=== PATIENT | male | born 1940 | race Caucasian/White ===

== ENCOUNTER → 2017-01-16 | Outpatient (CLI) | payer MEDICARE, BC, MEDICAID ==
--- NOTE | 2017-01-16 14:40 | REP ---
Clinical: Pain and difficulty with ambulation. Technique: AP, lateral, bilateral oblique and sunrise views of the right knee. Findings: Advanced tricompartmental osteoarthritic degenerative changes are appreciated including presumed loose bodies in the joint space, chondrocalcinosis, severe joint space obliteration and marginal osteophytes. Vascular calcifications are identified. No obvious acute fracture dislocation. Overlying swelling. Impression: Advanced tricompartmental osteoarthritic degenerative changes as described above. No obvious acute fracture or dislocation. Signed by Anders Damon MD 01/16/2017 02:32 P
--- NOTE | 2017-01-16 14:43 | REP ---
Clinical: Pain and difficulty with ambulation. Technique: AP and lateral views of the right hip. Comparison: 08/11/1970. Findings: Orthopedic hardware for prior hip fracture is in stable appropriate position. Joint space narrowing along with subtle spurring along the acetabular roof is again noted and consistent with mild to moderate degenerative change. Vascular calcifications are identified. No acute fracture dislocation. Impression: Relatively similar/stable appearance when compared to 2006. No acute fracture dislocation. Signed by Anders Damon MD 01/16/2017 02:35 P
--- NOTE | 2017-01-16 14:47 | REP ---
Clinical: Pain and difficulty on ambulation. Technique: AP and lateral views of the tibia / fibula. Findings: Advanced degenerative changes at the knee joint. No acute fracture dislocation. Surgical clips in the subcutaneous tissues consistent with prior vascular surgery. Impression: No acute fracture dislocation. Signed by Anders Damon MD 01/16/2017 02:40 P
== END ==
LOC: M SMT 13:16
PROVIDERS: ATTEND Nurse Practitioner Family
DX: R26.2 Difficulty in walking, not elsewhere classified (principal); M17.11 Unilateral primary osteoarthritis, right knee

== ENCOUNTER → 2018-07-12 | Outpatient (REF) | payer MEDICARE, MEDICAID ==
[2018-07-12 17:14] LABS: APPEARANCE, URINE CLEAR (CLEAR); BACTERIA, URINE AUTO NEGATIVE (NEGATIVE); BILIRUBIN, URINE AUTO NEGATIVE (NEGATIVE); BLOOD, URINE BLOOD NEGATIVE (NEGATIVE); CALCIUM OXALATE CRYSTALS MODERATE; COLOR, URINE YELLOW (YELLOW); GLUCOSE, URINE (UA) AUTO NEGATIVE (NEGATIVE); KETONE, URINE AUTO NEGATIVE (NEGATIVE); LEUKOCYTE ESTERASE, URINE AUTO NEGATIVE (NEGATIVE); MUCUS, URINE SMALL (NEGATIVE); NITRITE, URINE AUTO NEGATIVE (NEGATIVE); PROTEIN, URINE AUTO NEGATIVE (NEGATIVE); RBC, URINE AUTO 3 /HPF (0-3); SQUAMOUS EPITHELIAL CELL UR AU 0 /HPF (0-6); UROBILINOGEN, URINE AUTO 0.2 mg/dL (0.0-2.0); WBC, URINE AUTO 1 /HPF (0-3)
== END ==
LOC: M LAB REF 10:56
DX: R32 Unspecified urinary incontinence (principal)
CPT/HCPCS: 81001

== ENCOUNTER 2019-06-16 17:18 | Observation (INO) | payer MEDICARE, MEDICAID ==
[~2019-06-16] VITALS: Ht 167.6 cm; Wt 89.7 kg
[2019-06-16] MEDS ORDERED: LASI40TA9 PO (18:19)
[2019-06-16] MEDS ORDERED: NON-325T5 PO (18:19)
[2019-06-16] MEDS ORDERED: POTA10TA16 PO (18:19)
[2019-06-16] MEDS ORDERED: METO25TA4 PO (18:19)
[2019-06-16] MEDS ORDERED: SIMV40TA2 PO (18:19)
[2019-06-16] MEDS ORDERED: MULTCAP PO (18:19)
[2019-06-16] MEDS ORDERED: BAYE325T16 PO (18:19)
[2019-06-16] MEDS ORDERED: NYAM10003 TOP (18:19)
[2019-06-16 19:04] LABS: ACETAMINOPHEN LEVEL < 2.0 UG/ML (10.0-30.0); ALBUMIN 3.6 GM/DL (3.2-5.2); ALT/SGPT 56 U/L (12-78); BILIRUBIN,DIRECT 0.2 MG/DL (0.0-0.2); BILIRUBIN,TOTAL 0.5 MG/DL (0.2-1.0); BLOOD UREA NITROGEN 15 MG/DL (7-18); CALCIUM LEVEL 8.6 MG/DL (8.8-10.2); CARBON DIOXIDE LEVEL 29 MEQ/L (21-32); CHLORIDE LEVEL 103 MEQ/L (98-107); CPK CREATINE PHOSPHOKINASE 76 U/L (39-308); CREATININE FOR GFR 1.17 MG/DL (0.70-1.30); ETHYL ALCOHOL (ETHANOL) < 0.003 % (0.000-0.010); GLOMERULAR FILTRATION RATE > 60.0 (>42); GLUCOSE, FASTING 152 MG/DL (70-100); POTASSIUM SERUM 4.6 MEQ/L (3.5-5.1); SALICYLATE LEVEL < 1.7 MG/DL (5.0-30.0); SODIUM LEVEL 139 MEQ/L (136-145); THYROID STIMULATING HORMONE 0.631 uIU/ML (0.358-3.740); TOTAL PROTEIN 7.5 GM/DL (6.4-8.2)
[2019-06-16 19:33] LABS: BASO # 0.1 10^3/uL (0.0-0.2); BASO % 0.9 % (0.0-1.0); HEMOGLOBIN 15.8 g/dl (13.5-17.5); LYMPH # 0.8 10^3/uL (1.5-5.0); LYMPH % 10.9 % (24.0-44.0); MEAN CORPUSCULAR HEMOGLOBIN 32.4 pg (27.0-33.0); MEAN CORPUSCULAR HGB CONC 32.9 g/dl (32.0-36.5); MEAN CORPUSCULAR VOLUME 98.6 fl (80.0-96.0); MONO # 0.2 10^3/uL (0.0-0.8); MONO % 2.4 % (0.0-5.0); NEUTROPHILS % 85.5 % (36.0-66.0); PLATELET COUNT, AUTOMATED 194 10^3/uL (150-450); RED BLOOD COUNT 4.87 10^6/uL (4.30-6.10)
[2019-06-16] MEDS ORDERED: ONDANSETRON 4MG/2ML VIAL (J2405) IV ONE (21:15)
--- NOTE | 2019-06-16 21:34 | ECGEPIP ---
[facility] - ED Test Date: 2019-06-16 Pat Name: JOCELYN LYONS Department: Room: - Gender: Male Minute Clerk: JChanetll : 1940 Requested By: KACIE Ramesh Order Number: [id number] Reading MD: Gagan Siddiqui Measurements Intervals [place] Rate: 70 P: 42 OR: 168 QRS: -8 QRSD: 85 T: 87 QT: 416 QTc: 450 Interpretive Statements SINUS RHYTHM NONSPECIFIC T-WAVE ABNORMALITY NSTTW ABNORMALITIES BASELINE ARTIFACT AFFECTS INTERPRETATION NO PRIORS FOR COMPARISON Electronically Signed on 06-16-2019 21:33:37 EDT by Gagan Siddiqui
--- NOTE | 2019-06-16 21:53 | REPVR ---
PROCEDURE INFORMATION: Exam: CT Head Without Contrast Exam date and time: 06/16/2019 9:29 PM Clinical history: 78 years old, male; Altered mental status/memory loss TECHNIQUE: Imaging protocol: Computed tomography of the head without contrast. Radiation optimization: All CT scans at this facility use at least one of these dose optimization techniques: automated exposure control; mA and/or kV adjustment per patient size (includes targeted exams where dose is matched to clinical indication); or iterative reconstruction. COMPARISON: No relevant prior studies available. FINDINGS: Brain: Chronic encephalomalacic changes in the bilateral anterior frontal lobes, and bilateral parietal lobes. Nonspecific hypodensities of the periventricular and deep subcortical white matter, most likely secondary to chronic small vessel ischemic change. No intracranial hemorrhage or extra-axial fluid collection. No evidence of mass effect or midline shift. Lora-white matter differentiation is normal. Ventricles: Prominence of the ventricles and sulci, most likely attributed to parenchymal volume loss. Bones/joints: Chronic bilateral agustín hole defects. No acute fracture. Sinuses: Unremarkable as visualized. Mastoid air cells: Unremarkable. Soft tissues: Unremarkable. IMPRESSION: 1. No acute intracranial pathology. 2. Other chronic findings, as above. Electronically signed by: Shon Kulkarni On 06/16/2019 21:53:09 PM
[2019-06-16] MEDS ORDERED: ACETAMINOPHEN TAB 650MG DOSE (2X325MG) PO PRN (23:00)
[2019-06-16] MEDS ORDERED: HALOPERIDOL 5 MG/ML VIAL (J1630) IV PRN (23:00)
--- NOTE | 2019-06-16 23:24 | HPEPDOC ---
General Date of Admission 06/16/19 Date of Service: Jun 16, 2019 Primary Care Physician: Maya Sanchez Chief Complaint The patient is a 78-year-old male admitted with a reason for visit of Accidental Overdose. Source: RN/MD, EMS notes reviewed, shelter records, Old records Exam Limitations: Clinical conditions, Mild cognitive slowing Timing/Duration: Unsure Severity: Other (, not applicable) Associated Symptoms: Other (confusion) History of Present Illness 78 years old assisted living resident with past medical history of lipidemia. Essential primary hypertension, old VA, ASHD, amnesia was brought to ED as he received 200 mg, alert, and 77.5 mg of Percocet by mistake and as as per patient, he felt like he drank a time. Patient had extensive workup done ED essentially came out negative and patient was about to be discharged home. He was found to be confused, pulling out his EKG leads and continuous pulse ox and lead. Hence, we were called in to admit him for observation overnight. Patient has a loss of attention, but is cooperative and follows commands and offers no new complaints Home Medications Scheduled Aspirin (Aspirin) 325 Mg Tablet, 325 MG PO DAILY, (Reported) Furosemide (Lasix) 40 Mg Tablet, 40 MG PO DAILY, (Reported) Metoprolol Tartrate (Metoprolol Tartrate) 25 Mg Tablet, 12.5 MG PO BID, (Reported) Multivitamin (Multivitamins) 1 Each Capsule, 1 CAP PO DAILY, (Reported) Potassium Chloride (Potassium Chloride) 10 Meq Tab.er.prt, 10 MEQ PO DAILY, (Reported) Simvastatin (Simvastatin) 40 Mg Tablet, 40 MG PO QHS, (Reported) Scheduled PRN Acetaminophen (Acetaminophen) 325 Mg Tablet, 650 MG PO Q4H PRN for PAIN / FEVER, (Reported) Nystatin (Nyamyc) 15 Gm Powder, 1 APPLIC TOP BID PRN for RASH, (Reported) Allergies Coded Allergies: No Known Allergies (Unverified , 06/16/19) Past Medical History Medical History Hyperlipidemia, essential primary hypertension, old VA, ASHD, GERD, amnesia, COPD Surgical History History of colonoscopy, biopsy of the GE junction. ORIF of right hip Family History Significant Family History: No pertinent family hx Social History * Smoker: current smoker Alcohol: Denies Drugs: denies A-FIB/CHADSVASC A-FIB History Current/History of A-Fib/PAF?: No Review of Systems Constitutional: Denies: Chills, Fever, Malaise, Night Sweats, Weakness, Fatigue, Weight Loss, Lethargy, Other Eyes: Denies: Pain, Vision change, Conjunctivae inflammation, Eyelid inflammation, Redness, Other ENT: Denies: Head Aches, Ear Pain, Dysphagia, Sinus Congestion, Post Nasal Drip, Sore Throat, Epistaxis, Other Symptoms Skin: Denies: Rash, Lesions, Jaundice, Bruising, Itching, Dry, Breakdown, Nail Changes, Other Pulmonary: Denies: Dyspnea, Cough, Pleuritic Chest Pain, Other Symptoms Cardiovascular: Denies: Chest Pain, Palpitations, Orthopnea, Paroxysmal Noc. Dyspnea, Edema, Lt Headedness, Other Symptoms Gastrointestinal: Denies: Nausea, Vomiting, Abdominal Pain, Diarrhea, Constipation, Melena, Hematochezia, Other Symptoms Genitourinary: Denies: Dysuria, Frequency, Incontinence, Hematuria, Retention, Other Symptoms Hematologic: Denies: Bruising, Bleeding Excessively, Petecchia, Purpura, Enlarged Lymph Nodes, Other Hematologic Endocrine: Denies: Polydipsia, Polyphagia, Polyuria, Heat Intolerance, Cold Intolerance, Other Endocrine Sx Musculoskeletal: Denies: Neck Pain, Back Pain, Shoulder Pain, Arm Pain, Hand Pain, Leg Pain, Foot Pain, Joint Pain, Muscle Pain, Spasms, Other Symptoms Neurological: Denies: Weakness, Numbness, Incoordination, Change in speech, Confusion, Seizures, Other Symptoms Psych: Denies: Mood Normal, Anxiety, Depression, Memory Issues, Thoughts of Self Harm, Anger, Thoughts of Harming Other, Other Psych Physical Examination General Exam: Positive: Alert, Cooperative, Other (confused with light of lack of attention, but follows commands) Eye Exam: Positive: PERRLA, Conjunctiva & lids normal ENT Exam: Positive: Atraumatic, Mucous membr. moist/pink Neck Exam: Positive: Supple Chest Exam: Positive: Clear to auscultation, Normal air movement Heart Exam: Positive: Rate Normal, Normal S1, Normal S2 Abdomen Exam: Positive: Normal bowel sounds, Soft Extremity Exam: Positive: Normal pulses Skin Exam: Positive: Nl turgor and temperature Neuro Exam: Positive: Strength at 5/5 X4 ext, Sensation Intact Psych Exam: Positive: Other (. Patient is confused) Vital Signs Vital Signs Date Time Temp Pulse Resp B/P (MAP) Pulse Ox O2 Delivery O2 Flow Rate FiO2 06/16/19 22:16 80 16 142/77 (98) 92 06/16/19 19:55 97.8 Room Air Laboratory Data Labs 24H Laboratory Tests 2 06/16/19 18:04: Immature Granulocyte % (Auto) 0.3, Neutrophils (%) (Auto) 85.5H, Lymphocytes (%) (Auto) 10.9L, Monocytes (%) (Auto) 2.4, Eosinophils (%) (Auto) 0.0, Basophils (%) (Auto) 0.9, Neutrophils # (Auto) 6.0, Lymphocytes # (Auto) 0.8L, Monocytes # (Auto) 0.2, Eosinophils # (Auto) 0.0, Basophils # (Auto) 0.1, Nucleated Red Blood Cells % (auto) 0.0, Anion Gap 7L, Glomerular Filtration Rate > 60.0, Calcium Level 8.6L, Total Bilirubin 0.5, Direct Bilirubin 0.2, Aspartate Amino Transf (AST/SGOT) 42H, Alanine Aminotransferase (ALT/SGPT) 56, Alkaline Phosphatase 68, Total Creatine Kinase 76, Total Protein 7.5, Albumin 3.6, Albumin/Globulin Ratio 0.92L, Thyroid Stimulating Hormone (TSH) 0.631, Salicylates Level < 1.7L, Acetaminophen Level < 2.0L, Ethyl Alcohol Level < 0.003 CBC/BMP Laboratory Tests 06/16/19 18:04 Problems (1) Ingestion of nontoxic substance Status: Acute Problem Text: 78 years old white male with past medical history of multiple medical problems including GERD, hypertension, COPD, hyperlipidemia, ASHD, accidentally was given some other patient's medications and he He was drunk. Elmer had extensive workup done in ED which was all essentially within normal limits and he was ready to be discharged back to assisted-living facility, but was found to be confused with pulling his EKG leads and a continuous pulse ox later and tried to get out of bed, hence being admitted to PCU under observation overnight. Confusion is most likely secondary to delirium secondary to new environment and possibly baseline dementia Admitted to PCU with the telemetry monitoring One-to-one observation to prevent falls Neuro check every 4 hours for 24 hours Haldol 1 mg IV/IM every 6 hours when necessary for agitation CBC, CMP, magnesium in a.m. Continue all home meds Possible transfer back to assisted-living facility in a.m. Diet 2 g sodium Activity as tolerated DVT prophylaxis with heparin (2) Confusion Status: Acute Problem Text: Most likely secondary to delirium secondary to new environment with possible baseline dementia Close observation Haldol when necessary One-to-one watch Neuro check every 6 hours for 24-hour (3) Smoking addiction Status: Chronic Problem Text: Nicotine 14 mg patch daily Smoking cessation counseling done (4) HTN (hypertension) Problem Text: Under control Continue home meds Plan / VTE VTE Prophylaxis Ordered?: Yes BERNY PRESTON MD Jun 16, 2019 23:24
[2019-06-17 01:30] VITALS: BP 143/72
[2019-06-17 04:00] VITALS: BP 107/66
[2019-06-17 08:00] VITALS: BP 145/73
--- NOTE | 2019-06-17 08:06 | REP ---
Chest x-ray: Two views. History: Altered mental status. Comparison chest x-ray: September 21, 2008. Findings: The patient is status post prior median sternotomy in the interval since the 2009 chest x-ray. Heart is not enlarged. There is a benign pleural thickening on the right. No pleural effusion is seen. No pulmonary edema is noted. No infiltrate seen. Vascular calcifications noted. Impression: Prior sternotomy. Otherwise no acute disease. Electronically Signed by Naseem Limon MD 06/17/2019 07:57 A
[2019-06-17 08:39] VITALS: BP 145/73
[2019-06-17] MEDS ORDERED: POTASSIUM CHLORIDE 10 MEQ SR TABLET PO SCH (09:00)
[2019-06-17] MEDS ORDERED: HEPARIN SOD (PORCINE) 5000 UNITS/ML VIAL SC SCH (09:00)
[2019-06-17] MEDS ORDERED: ASPIRIN 325 MG TAB PO SCH (09:00)
[2019-06-17] MEDS ORDERED: FUROSEMIDE 40 MG TAB PO SCH (09:00)
[2019-06-17] MEDS ORDERED: METOPROLOL TART 12.5 MG PER 1/2 TAB PO SCH (09:00)
[2019-06-17] MEDS ORDERED: NYSTATIN 100,000 UNITS/GM TOPICAL PWD 15 GM TOP PRN (09:00)
[2019-06-17 10:17] LABS: HEMOGLOBIN 14.8 g/dl (13.5-17.5); MEAN CORPUSCULAR HEMOGLOBIN 33.2 pg (27.0-33.0); MEAN CORPUSCULAR HGB CONC 34.4 g/dl (32.0-36.5); MEAN CORPUSCULAR VOLUME 96.4 fl (80.0-96.0); PLATELET COUNT, AUTOMATED 177 10^3/uL (150-450); RED BLOOD COUNT 4.46 10^6/uL (4.30-6.10); WHITE BLOOD COUNT 8.3 10^3/uL (4.0-10.0)
[2019-06-17 11:02] LABS: ALBUMIN 3.3 GM/DL (3.2-5.2); ALT/SGPT 48 U/L (12-78); BILIRUBIN,TOTAL 0.6 MG/DL (0.2-1.0); BLOOD UREA NITROGEN 17 MG/DL (7-18); CALCIUM LEVEL 8.3 MG/DL (8.8-10.2); CARBON DIOXIDE LEVEL 30 MEQ/L (21-32); CHLORIDE LEVEL 104 MEQ/L (98-107); CREATININE FOR GFR 1.04 MG/DL (0.70-1.30); GLOMERULAR FILTRATION RATE > 60.0 (>42); GLUCOSE, FASTING 185 MG/DL (70-100); POTASSIUM SERUM 3.4 MEQ/L (3.5-5.1); SODIUM LEVEL 140 MEQ/L (136-145); TOTAL PROTEIN 6.9 GM/DL (6.4-8.2)
--- NOTE | 2019-06-17 13:06 | DSES ---
DATE OF ADMISSION: 06/16/2019 DATE OF DISCHARGE: 06/17/2019 The patient is discharged to [facility]. PRIMARY DISCHARGE DIAGNOSES: 1. Acute delirium due to ingestion of nontoxic substance. 2. Nicotine abuse. 3. Hypertension. DISCHARGE MEDICATIONS: - acetaminophen 650 mg every 4 hours as needed for pain - aspirin 325 mg daily - Lasix 40 mg daily - metoprolol 12.5 mg twice a day - multivitamin one tablet daily - nystatin as needed topically twice a day - potassium 10 mEq daily - simvastatin 40 mg at night HOSPITAL COURSE: This is a 78-year-old male who lives at [facility] with a history of chronic dementia, dyslipidemia, hypertension, coronary artery disease, myocardial infarction, had taken Percocet by mistake per the patient and felt like he was intoxicated. Extensive workup in the emergency room, including CBC, CMP, TSH, urine toxicology screen were all negative. Glucose was 153. Imaging study included CT of the head, which showed no acute intracranial pathology. Due to belligerence, the patient required a sitter overnight, as he was pulling on telemetry. Telemetry was unremarkable and with sinus rhythm, ventricle rate of 69 to 90. The patient is wheelchair bound at baseline. Much more oriented today. Able to state his name, where he is in the hospital, and able to say that he lives at the [facility]. However, he is disoriented to date. He knows that it is fall, does not know the month or year, which is baseline. LABORATORIES ON DISCHARGE: White count 7, hemoglobin 15, hematocrit 48, platelet count 194. Sodium 139, potassium 4.6, chloride 103, bicarbonate 29, BUN 15, creatinine 1.17, glucose 152, calcium 8.6, total bilirubin 0.5, direct bilirubin 0.2, AST 42, ALT 56, alkaline phosphatase 68, total CK 76, total protein 7.5, albumin 3.6, TSH is 0.63. Toxicology screen: Ethyl alcohol less than 0.003, acetaminophen less than 2, salicylate less than 1.7, glucose 153. CT of the head showed no acute intracranial pathology on 06/16/2019. Time spent on discharge: 30 minutes.
[2019-06-17] MEDS ORDERED: SIMVASTATIN 40 MG TAB PO SCH (21:00)
== END 2019-06-17 12:56 ==
LOC: EDBD 17:18 → M ED 17:18 → M ED INP 17:19 → M PCU 06-17 01:09
PROVIDERS: ADMIT Internal Medicine; ATTEND Internal Medicine
DX: T40.2X1A Poisoning by other opioids, accidental (unintentional), initial encounter (principal); F05 Delirium due to known physiological condition; I10 Essential (primary) hypertension; I25.10 Atherosclerotic heart disease of native coronary artery without angina pectoris; I25.2 Old myocardial infarction; E78.49 Other hyperlipidemia; J44.9 Chronic obstructive pulmonary disease, unspecified; Z79.82 Long term (current) use of aspirin; Z79.899 Other long term (current) drug therapy; K21.9 Gastro-esophageal reflux disease without esophagitis; F17.218 Nicotine dependence, cigarettes, with other nicotine-induced disorders
CPT/HCPCS: 36415; 70450; 71046; 80048; 80053; 80076; 82550; 83735; 84443; 85025; 85027; 93005; 93041; 94760; 96372; 99285; G0378; G0480

== ENCOUNTER → 2019-12-18 | Outpatient (REF) | payer MEDICARE, MEDICAID ==
[~2019-12-18] MED LIST: BAYE325T16 PO; LASI40TA9 PO; METO25TA4 PO; MULTCAP PO; NON-325T5 PO; NYAM10003 TOP; POTA10TA16 PO; SIMV40TA20 PO
[2019-12-18 17:23] LABS: HEMOGLOBIN A1c 7.2 %
[2019-12-18 17:27] LABS: ALBUMIN 3.9 GM/DL (3.2-5.2); ALT/SGPT 71 U/L (12-78); BILIRUBIN,TOTAL 0.5 MG/DL (0.2-1.0); BLOOD UREA NITROGEN 14 MG/DL (7-18); CALCIUM LEVEL 8.7 MG/DL (8.8-10.2); CARBON DIOXIDE LEVEL 28 MEQ/L (21-32); CHLORIDE LEVEL 104 MEQ/L (98-107); CHOLESTEROL LEVEL 146 MG/DL (<200); CHOLESTEROL RISK RATIO 4.171 (<5); CREATININE FOR GFR 0.94 MG/DL (0.70-1.30); GLOMERULAR FILTRATION RATE > 60.0 (>35); GLUCOSE, FASTING 114 MG/DL (70-100); HDL CHOLESTEROL 35 MG/DL (>40); LDL CHOLESTEROL 67 MG/DL (<100); NON-HDL-C 111 MG/DL; SODIUM LEVEL 139 MEQ/L (136-145); TOTAL PROTEIN 7.8 GM/DL (6.4-8.2); TRIGLYCERIDES LEVEL 219 MG/DL (<150)
== END ==
LOC: M SFHCPLAZ 15:23
PROVIDERS: ATTEND Internal Medicine
DX: I25.10 Atherosclerotic heart disease of native coronary artery without angina pectoris (principal); E78.2 Mixed hyperlipidemia; R73.9 Hyperglycemia, unspecified
CPT/HCPCS: 36415; 80053; 80061; 83036; G0463

== ENCOUNTER → 2020-06-21 | Outpatient (REF) | payer MEDICARE, MEDICAID ==
[2020-06-21 11:47] LABS: BASO # 0.1 10^3/uL (0.0-0.2); BASO % 1.4 % (0.0-1.0); EOS # 0.3 10^3/uL (0.0-0.5); EOS % 4.5 % (0.0-3.0); HEMATOCRIT 47.1 % (42.0-52.0); HEMOGLOBIN 15.6 g/dl (13.5-17.5); LYMPH # 1.9 10^3/uL (1.5-5.0); LYMPH % 30.1 % (24.0-44.0); MEAN CORPUSCULAR HEMOGLOBIN 31.1 pg (27.0-33.0); MEAN CORPUSCULAR HGB CONC 33.1 g/dl (32.0-36.5); MONO # 0.4 10^3/uL (0.0-0.8); MONO % 5.7 % (0.0-5.0); NEUTROPHILS # 3.7 10^3/uL (1.5-8.5); NEUTROPHILS % 58.1 % (36.0-66.0); PLATELET COUNT, AUTOMATED 187 10^3/uL (150-450); RED BLOOD COUNT 5.01 10^6/uL (4.30-6.10); WHITE BLOOD COUNT 6.3 10^3/uL (4.0-10.0)
[2020-06-21 13:01] LABS: HEMOGLOBIN A1c 6.4 %
[2020-06-21 13:31] LABS: ALBUMIN 3.6 GM/DL (3.2-5.2); ALT/SGPT 41 U/L (12-78); BILIRUBIN,TOTAL 0.8 MG/DL (0.2-1.0); BLOOD UREA NITROGEN 14 MG/DL (7-18); CALCIUM LEVEL 8.5 MG/DL (8.8-10.2); CARBON DIOXIDE LEVEL 27 MEQ/L (21-32); CHLORIDE LEVEL 102 MEQ/L (98-107); CHOLESTEROL LEVEL 136 MG/DL (<200); CHOLESTEROL RISK RATIO 3.675 (<5); CREATININE FOR GFR 1.07 MG/DL (0.70-1.30); GLOMERULAR FILTRATION RATE > 60.0 (>35); GLUCOSE, FASTING 202 MG/DL (70-100); HDL CHOLESTEROL 37 MG/DL (>40); LDL CHOLESTEROL 64 MG/DL (<100); NON-HDL-C 99 MG/DL; POTASSIUM SERUM 3.9 MEQ/L (3.5-5.1); SODIUM LEVEL 139 MEQ/L (136-145); TOTAL PROTEIN 7.3 GM/DL (6.4-8.2); TRIGLYCERIDES LEVEL 174 MG/DL (<150)
== END ==
PROVIDERS: ATTEND Nurse Practitioner Adult Health
DX: I50.9 Heart failure, unspecified (principal); E78.2 Mixed hyperlipidemia; I25.10 Atherosclerotic heart disease of native coronary artery without angina pectoris; Z79.899 Other long term (current) drug therapy

== ENCOUNTER → 2020-08-17 | Outpatient (REF) | payer MEDICARE, MEDICAID ==
[~2020-08-17] MED LIST changes: +ACET-838 PO; -NON-325T5 PO
[2020-08-17 16:11] LABS: INFLUENZA A AMPLIFICATION NEGATIVE (NEGATIVE); INFLUENZA B AMPLIFICATION NEGATIVE (NEGATIVE)
== END ==
PROVIDERS: ATTEND Internal Medicine
DX: Z20.828 Contact with and (suspected) exposure to other viral communicable diseases (principal)
CPT/HCPCS: 87502; U0003

== ENCOUNTER → 2020-08-22 | Outpatient (REF) | payer MEDICARE, MEDICAID | PROVIDERS: ATTEND Internal Medicine | DX: Z20.828 Contact with and (suspected) exposure to other viral communicable diseases (principal) ==

== ENCOUNTER → 2020-09-05 | Outpatient (REF) | payer MEDICARE, MEDICAID | PROVIDERS: ATTEND Internal Medicine | DX: Z20.822 Contact with and (suspected) exposure to COVID-19 (principal) ==

== ENCOUNTER → 2020-09-12 | Outpatient (REF) | payer MEDICARE, MEDICAID | PROVIDERS: ATTEND Internal Medicine | DX: Z20.822 Contact with and (suspected) exposure to COVID-19 (principal) ==

== ENCOUNTER → 2020-09-19 | Outpatient (REF) | payer MEDICARE, MEDICAID | PROVIDERS: ATTEND Internal Medicine | DX: Z20.822 Contact with and (suspected) exposure to COVID-19 (principal) ==

== ENCOUNTER → 2020-09-26 | Outpatient (REF) | payer MEDICARE, MEDICAID | PROVIDERS: ATTEND Internal Medicine | DX: Z20.822 Contact with and (suspected) exposure to COVID-19 (principal) ==

== ENCOUNTER → 2020-10-03 | Outpatient (REF) | payer MEDICARE, MEDICAID | PROVIDERS: ATTEND Internal Medicine | DX: Z20.822 Contact with and (suspected) exposure to COVID-19 (principal) ==

== ENCOUNTER → 2020-10-10 | Outpatient (REF) | payer MEDICARE, MEDICAID | PROVIDERS: ATTEND Internal Medicine | DX: Z20.822 Contact with and (suspected) exposure to COVID-19 (principal) ==

== ENCOUNTER → 2020-10-17 | Outpatient (REF) | payer MEDICARE, MEDICAID | PROVIDERS: ATTEND Internal Medicine | DX: Z20.822 Contact with and (suspected) exposure to COVID-19 (principal) ==

== ENCOUNTER → 2020-11-15 | Outpatient (CLI) | payer MEDICARE, MEDICAID ==
[~2020-11-15] MED LIST changes: +ACET-907 PO; +ADV250INH INH; +ASPI-527 PO; +NYST1POW9 TOP; +OMEP-221 PO; +OMEP40CA97 PO; +PRED10TA2 PO; +QC A650T3 PO; +SUCR1TA PO; +SUCR1TAB56 PO; +VITMTA PO
--- NOTE | 2020-11-15 15:52 | REPPI ---
INDICATION: R07.89 ATYPICAL CHEST PAIN COMPARISON: 06/16/2019 TECHNIQUE: PA and lateral. FINDINGS: Mediastinum and cardiac silhouette are stable with evidence for prior sternotomy and CABG again noted. No cardiomegaly. The lung hickey demonstrate stable chronic interstitial changes. No acute consolidation, effusion, or pneumothorax. Skeletal structures demonstrate age-related changes. IMPRESSION: Chronic stable changes. <Electronically signed by Anders Damon > 11/15/20 [id number]
== END ==
LOC: M PLAIMG 15:17
PROVIDERS: ATTEND Nurse Practitioner Adult Health
DX: R07.89 Other chest pain (principal); Z95.1 Presence of aortocoronary bypass graft
CPT/HCPCS: 71046; 93005; G0463

== ENCOUNTER → 2020-11-18 | Outpatient (REF) | payer MEDICARE, MEDICAID ==
[~2020-11-18] MED LIST changes: -ACET-907 PO; -ADV250INH INH; -ASPI-527 PO; -NYST1POW9 TOP; -OMEP-221 PO; -PRED10TA2 PO; -QC A650T3 PO; -SUCR1TAB56 PO; -VITMTA PO
[2020-11-18 17:38] LABS: APPEARANCE, URINE CLEAR (CLEAR); BACTERIA, URINE AUTO 1+ (NEGATIVE); BILIRUBIN, URINE AUTO NEGATIVE (NEGATIVE); BLOOD, URINE BLOOD 1+ (NEGATIVE); COLOR, URINE YELLOW (YELLOW); GLUCOSE, URINE (UA) AUTO NEGATIVE (NEGATIVE); KETONE, URINE AUTO NEGATIVE (NEGATIVE); LEUKOCYTE ESTERASE, URINE AUTO NEGATIVE (NEGATIVE); MUCUS, URINE SMALL (NEGATIVE); NITRITE, URINE AUTO NEGATIVE (NEGATIVE); PROTEIN, URINE AUTO NEGATIVE (NEGATIVE); RBC, URINE AUTO 2 /HPF (0-3); SPECIFIC GRAVITY URINE AUTO 1.014 (1.002-1.035); SQUAMOUS EPITHELIAL CELL UR AU 0 /HPF (0-6); WBC, URINE AUTO 1 /HPF (0-3)
== END ==
PROVIDERS: ATTEND Nurse Practitioner Adult Health
DX: R30.0 Dysuria (principal); R32 Unspecified urinary incontinence

== ENCOUNTER 2020-11-19 10:03 | Emergency (ER) | payer MEDICARE, MEDICAID ==
[~2020-11-19] VITALS: Ht 170.2 cm; Wt 72.7 kg
[~2020-11-19 10:03] MED LIST changes: -OMEP40CA97 PO; -SUCR1TA PO
[2020-11-19 11:35] LABS: BASO # 0.1 10^3/uL (0.0-0.2); BASO % 0.6 % (0.0-1.0); EOS % 0.4 % (0.0-3.0); HEMATOCRIT 43.3 % (42.0-52.0); HEMOGLOBIN 14.6 g/dl (13.5-17.5); LYMPH # 1.4 10^3/uL (1.5-5.0); LYMPH % 13.5 % (24.0-44.0); MEAN CORPUSCULAR HEMOGLOBIN 31.7 pg (27.0-33.0); MEAN CORPUSCULAR HGB CONC 33.7 g/dl (32.0-36.5); MEAN CORPUSCULAR VOLUME 94.1 fl (80.0-96.0); MONO # 0.8 10^3/uL (0.0-0.8); MONO % 7.7 % (2.0-8.0); NEUTROPHILS # 7.9 10^3/uL (1.5-8.5); NEUTROPHILS % 76.6 % (36.0-66.0); PLATELET COUNT, AUTOMATED 203 10^3/uL (150-450); WHITE BLOOD COUNT 10.3 10^3/uL (4.0-10.0)
--- NOTE | 2020-11-19 11:40 | REP ---
INDICATION: CHEST PAIN. COMPARISON: 11/15/2020 PA and lateral chest. TECHNIQUE: Portable AP chest with the patient semi upright.. FINDINGS: The lung hickey are clear. Cardiac size is normal. The marilee, mediastinum and skeletal structures are unremarkable. There are sternotomy wires, unchanged. IMPRESSION: Essentially negative portable chest <Electronically signed by Kwadwo Marin > 11/19/20 [id number]
[2020-11-19 11:49] LABS: INR 1.13; PROTHROMBIN TIME 14.8 SECONDS (12.5-14.3)
[2020-11-19 11:50] LABS: PARTIAL THROMBOPLASTIN TIME 33.6 SECONDS (24.2-38.5)
[2020-11-19 12:15] LABS: ALT/SGPT 26 U/L (12-78); BILIRUBIN,DIRECT 0.2 MG/DL (0.0-0.2); BILIRUBIN,TOTAL 0.5 MG/DL (0.2-1.0); BLOOD UREA NITROGEN 22 MG/DL (7-18); CALCIUM LEVEL 11.3 MG/DL (8.8-10.2); CARBON DIOXIDE LEVEL 29 MEQ/L (21-32); CHLORIDE LEVEL 102 MEQ/L (98-107); CK-MB VALUE MASS 1.3 NG/ML (<3.6); CPK CREATINE PHOSPHOKINASE 195 U/L (39-308); CREATININE FOR GFR 1.17 MG/DL (0.70-1.30); GLOMERULAR FILTRATION RATE > 60.0 (>35); GLUCOSE, FASTING 258 MG/DL (70-100); MB/CK RELATIVE INDEX 0.67 (< OR =4); NT-PRO BNP 356 PG/ML (<450); POTASSIUM SERUM 3.8 MEQ/L (3.5-5.1); SODIUM LEVEL 139 MEQ/L (136-145); THYROID STIMULATING HORMONE 0.639 uIU/ML (0.358-3.740); TOTAL PROTEIN 7.1 GM/DL (6.4-8.2); TROPONIN I < 0.02 NG/ML (< 0.10)
[2020-11-19 13:51] LABS: CK-MB VALUE MASS 1.6 NG/ML (<3.6); CPK CREATINE PHOSPHOKINASE 188 U/L (39-308); MB/CK RELATIVE INDEX 0.85 (< OR =4); TROPONIN I < 0.02 NG/ML (< 0.10)
[2020-11-19 14:05] VITALS: BP 134/92
[2020-11-19] MEDS ORDERED: SUCR1TA PO (14:46)
[2020-11-19] MEDS ORDERED: OMEP40CA97 PO (14:46)
--- NOTE | 2020-11-20 08:13 | ECGEPIP ---
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
--- NOTE | 2020-11-20 08:18 | ECGEPIP ---
[facility] - ED Test Date: 2020-11-19 Pat Name: JOCELYN LYONS Department: Room: - Gender: Male Floorman: : 1940 Requested By: KACIE Ramesh Order Number: [id number] Reading MD: Kaitlin Pierson Measurements Intervals [place] Rate: 87 P: 42 [place]: 148 QRS: 1 QRSD: 80 T: 11 QT: 348 QTc: 418 Interpretive Statements Normal sinus rhythm Nonspecific T wave abnormality similar 11/19/20 Electronically Signed on 11-20-2020 8:18:03 EDT by Kaitlin Pierson
== END 2020-11-19 16:22 | disposition home or self-care (01) ==
LOC: EDBD 10:03 → EDSEX 10:03 → M ED 10:03
DX: K21.9 Gastro-esophageal reflux disease without esophagitis (principal); R07.89 Other chest pain; I25.10 Atherosclerotic heart disease of native coronary artery without angina pectoris; I25.2 Old myocardial infarction; I10 Essential (primary) hypertension; E78.5 Hyperlipidemia, unspecified; J44.9 Chronic obstructive pulmonary disease, unspecified; Z87.891 Personal history of nicotine dependence; Z79.82 Long term (current) use of aspirin; Z79.899 Other long term (current) drug therapy

== ENCOUNTER → 2020-11-22 | Outpatient (CLI) | payer MEDICARE, MEDICAID ==
[~2020-11-22] MED LIST changes: -ACET-838 PO; +ACET-907 PO; +ACET32TAB PO; +ADV250INH INH; +ASPI-527 PO; +NYST1POW9 TOP; +OMEP-221 PO; +OMEP40CA97 PO; +PRED10TA2 PO; +QC A650T3 PO; +SUCR1TA PO; +SUCR1TAB56 PO; +VITMTA PO
--- NOTE | 2020-11-22 17:55 | REPPI ---
INDICATION: THORACIC PAIN. COMPARISON: Comparison chest x-ray films June 16, 2019.. TECHNIQUE: Two views of the thoracic spine are presented. FINDINGS: There is a levoconvex gentle thoracic curvature. Vascular calcifications noted. Median sternotomy wires are noted. Thoracic vertebral body heights are preserved on lateral radiograph. Degenerative disc disease is seen in the mid and lower thoracic spine somewhat more pronounced than on the 2019 study. No fracture or collapse is seen. No paravertebral soft tissue mass is seen. IMPRESSION: There is a levoconvex curvature and diffuse degenerative disc disease is seen. No acute abnormality is observed. <Electronically signed by Isauro Limon > 11/22/20 [id number]
--- NOTE | 2020-11-22 18:02 | REPPI ---
INDICATION: BACK PAIN. COMPARISON: None. TECHNIQUE: Three views of the lumbar spine are obtained. FINDINGS: Incidental note is made of a large abdominal aortic aneurysm. The anterior margin of the aneurysm is excluded from the field of view by collimation. On the lateral radiograph the dominant aneurysm measures greater than 8 cm. Cross-sectional imaging via CT or sonography recommended for further evaluation. Lumbar vertebral body heights are preserved. Alignment is normal on lateral radiograph. There is diffuse degenerative disc disease with vacuum phenomena at each level from L2-3 to L4-5. Discogenic spurring and disc space narrowing are also noted at L1-2 and T12-L1 and mild degenerative disc changes are noted at L5-S1. Pedicles and posterior elements are intact. There is osteoarthritic facet hypertrophy and sclerosis bilaterally at L5-S1 and L4-5. Sacrum and SI joints are intact. Psoas margins are symmetric. IMPRESSION: 1. There is a large abdominal aortic aneurysm partially excluded from the field of view and measuring at least 8 cm. Recommend aortic sonography or abdominal and pelvic CT study for further evaluation. 2. Diffuse degenerative spondylosis changes with degenerative disc disease. L4-5 and L5-S1 osteoarthritic facet disease noted. No acute bony abnormality seen. <Electronically signed by Isauro Limon > 11/22/20 [id number]
[2020-11-22 18:40] LABS: HEMOGLOBIN A1c 6.6 %
== END ==
LOC: M PLAIMG 15:18
PROVIDERS: ATTEND Nurse Practitioner Adult Health
DX: I71.4 Abdominal aortic aneurysm, without rupture (principal); M51.36 Other intervertebral disc degeneration, lumbar region; M25.78 Osteophyte, vertebrae; M51.34 Other intervertebral disc degeneration, thoracic region; M54.5 Low back pain; R73.9 Hyperglycemia, unspecified
CPT/HCPCS: 36415; 72070; 72110; 83036; G0463

== ENCOUNTER 2020-11-23 09:13 | Emergency (ER) | payer MEDICARE, MEDICAID ==
[~2020-11-23] VITALS: Ht 167.6 cm; Wt 86.4 kg
[~2020-11-23 09:13] MED LIST changes: +ACET-838 PO; -ACET-907 PO; -ACET32TAB PO; -ADV250INH INH; -ASPI-527 PO; -NYST1POW9 TOP; -OMEP-221 PO; -PRED10TA2 PO; -QC A650T3 PO; -SUCR1TAB56 PO; -VITMTA PO
--- NOTE | 2020-11-23 09:57 | REP ---
INDICATION: weakness. COMPARISON: Comparison chest radiograph November 19, 2020.. TECHNIQUE: Two views provided. Upright AP portable chest radiographs. FINDINGS: The patient is rotated quite a bit to the right for 1 of the current exposures and the right apex is obscured by overlying mandible. Median sternotomy wires are seen. Heart size is near the upper range of normal. Pulmonary vasculature is not increased. No infiltrate is seen the lung hickey. There is blunting of the right lateral pleural angle. IMPRESSION: Blunting of the right lateral pleural angle. Borderline heart size prior sternotomy. No focal infiltrate. <Electronically signed by Isauro Limon > 11/23/20 [id number]
[2020-11-23] MEDS ORDERED: LASI40TA9 PO (10:01)
[2020-11-23] MEDS ORDERED: ASPI-527 PO (10:01)
[2020-11-23] MEDS ORDERED: SIMV40TA20 PO (10:01)
[2020-11-23] MEDS ORDERED: ACET-907 PO (10:01)
[2020-11-23] MEDS ORDERED: ADV250INH INH (10:01)
[2020-11-23] MEDS ORDERED: NYST1POW9 TOP (10:01)
[2020-11-23] MEDS ORDERED: POTA10TA16 PO (10:01)
[2020-11-23] MEDS ORDERED: OMEP-221 PO (10:01)
[2020-11-23] MEDS ORDERED: PRED10TA2 PO (10:01)
[2020-11-23] MEDS ORDERED: METO25TA4 PO (10:01)
[2020-11-23] MEDS ORDERED: VITMTA PO (10:01)
[2020-11-23] MEDS ORDERED: QC A650T3 PO (10:01)
[2020-11-23] MEDS ORDERED: SUCR1TAB56 PO (10:01)
[2020-11-23 10:03] LABS: BASO # 0.1 10^3/uL (0.0-0.2); EOS # 0.2 10^3/uL (0.0-0.5); EOS % 1.5 % (0.0-3.0); HEMATOCRIT 46.4 % (42.0-52.0); HEMOGLOBIN 15.5 g/dl (13.5-17.5); LYMPH # 1.3 10^3/uL (1.5-5.0); LYMPH % 10.3 % (24.0-44.0); MEAN CORPUSCULAR HEMOGLOBIN 31.4 pg (27.0-33.0); MEAN CORPUSCULAR HGB CONC 33.4 g/dl (32.0-36.5); MEAN CORPUSCULAR VOLUME 93.9 fl (80.0-96.0); MONO # 0.9 10^3/uL (0.0-0.8); MONO % 7.1 % (2.0-8.0); NEUTROPHILS % 76.9 % (36.0-66.0); PLATELET COUNT, AUTOMATED 228 10^3/uL (150-450); RED BLOOD COUNT 4.94 10^6/uL (4.30-6.10)
[2020-11-23] MEDS ORDERED: ISOVUE-370 76% 100ML VIAL As Ordered ONE (10:04)
[2020-11-23 10:47] LABS: CK-MB VALUE MASS 1.6 NG/ML (<3.6); CPK CREATINE PHOSPHOKINASE 182 U/L (39-308); MB/CK RELATIVE INDEX 0.88 (< OR =4); NT-PRO BNP 846 PG/ML (<450); TROPONIN I < 0.02 NG/ML (< 0.10)
--- NOTE | 2020-11-23 10:58 | REP ---
INDICATION: AAA on xray, increased back pain COMPARISON: None. TECHNIQUE: CT Scan of the abdomen and pelvis was performed with intravenous administration of 100 cc of Isovue 370, without oral contrast. Sagittal, coronal and MIP reconstruction images performed. FINDINGS: Abdominal aorta: There is a large fusiform aneurysm of the distal abdominal aorta. Total craniocaudal length is approximately 14.5 cm. Maximum AP diameter is 8.5 cm and transverse 8.0 cm. Moderate to large amount of soft plaque and thrombus is seen in the aneurysm with a central patent lumen. This extends from just below the level of the renal arteries to the aortic bifurcation. There is no evidence of aortic dissection. There is no evidence of aneurysm rupture or leakage. There is no dilatation of the common iliac arteries. There is moderate diffuse narrowing of the bilateral common iliac and external iliac arteries due to atherosclerotic plaquing. Lung bases: There is mild fibro atelectatic change along the left hemidiaphragm. Liver: Normal Gallbladder: Small gallstones are seen in the gallbladder. Spleen: Normal. Adrenals: Normal. Pancreas: Normal. Kidneys: Normal. Small and large bowel: Unremarkable. Free fluid: None. Adenopathy: None. Osseous structures: There is metallic internal fixation in the proximal right femur. Multiple lytic lesions are seen consistent with metastases, specifically multiple small lytic lesions are seen throughout the visualized thoracolumbar vertebral bodies, as well as in the upper sacrum. Small lytic lesions are seen in both iliac bones. There is a lytic lesion in the anterior left ischium. There is an expansile lytic lesion in the anterior right 6th rib. There is lytic destruction of the posterior left 8th rib. A fracture of the lateral left 11th rib is likely at the site of a lytic lesion. 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 Total craniocaudal length is approximately 14.5 cm. Maximum AP diameter is 8.5 cm and transverse 8.0 cm. Moderate to large amount of soft plaque and thrombus is seen in the aneurysm with a central patent lumen. This extends from just below the level of the renal arteries to the aortic bifurcation. There is no evidence of aortic dissection. There is no evidence of aneurysm rupture or leakage. Diffuse lytic metastases throughout the visualized osseous structures as discussed in detail above. No mass or adenopathy is seen in the abdomen or pelvis. <Electronically signed by Kwadwo Lora > 11/23/20 [id number]
[2020-11-23 12:03] LABS: RSV AMPLIFICATION NEGATIVE (NEGATIVE)
[2020-11-23 13:09] VITALS: BP 130/79
--- NOTE | 2020-11-23 15:04 | CR.PDOC ---
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 Phelan is an 80-year-old male from [facility] assisted living with CAD and COPD who presents with chest pain. Patient is a poor historian and is only alert to location. He does not know year or president. History provided by ED physician. Patient has been having increased fatigue while at [facility]. In the past few days, he's been requiring a 2 person assist. As of late he's been complaining of chest pain. Patient tells me that he's been having intermittent chest pain for the past 3-4 months. He went to the urgent care for imaging, and was found to have a large aortic aneurysm. Today he was sent from [facility] to here for evaluation. CT angiogram of the abdomen demonstrates an aortic aneurysm with craniocaudal length of 14.5 cm, AP diameter of 8.5 cm, and transverse of 8 cm. Otherwise it demonstrates diffuse lytic metastasis throughout osseous structures and fracture of left lateral 11th rib. When I spoke to the patient, he tells me that his chest pain is substernal and feels like an achy pain. Nothing made it worse. Denies pleuritic chest pain. Tells me that time makes it better. Could not quantify how much time required for pain to resolve. Otherwise denies fever or dyspnea. I reached out to his healthcare proxy and brother, Darien Phelan. He is currently in [place]. I explained the patient's situation. 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 I also notified healthcare proxy of metastatic lesions and rib fracture. We discussed his advanced directives. 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 I discussed this case with insurance case manager who spoke with [facility]. Patient will return back to [facility] on penitentiary side. ALLERGIES: Please see below. HOME MEDICATIONS: Please see below. PAST MEDICAL HISTORY: 1. Hyperlipidemia 2. Essential hypertension 3. CAD status post UT 4. History of traumatic fractures 5. GERD 6. COPD PAST SURGICAL HISTORY: 1. Colonoscopy 2. EGD with balloon dilation and biopsy of the GE junction 3. ORIF 4. Cardiac catheterization FAMILY HISTORY: Father: , history of heart attack Mother: , history of Parkinson's disease SOCIAL HISTORY: Tobacco use: Patient tells me that he currently smokes. It's documented that he is a former smoker. Patient is a poor historian ETOH: Patient tells me that he has a few alcoholic drinks occasionally at [facility] Illicit drug use: Denies REVIEW OF SYSTEMS: CONSTITUTIONAL: Denies any fever or chills. ENT: Denies rhinorrhea. Denies sore throat. RESPIRATORY: Denies shortness of breath. CARDIOVASCULAR: Reports intermittent chest pain, achy in nature that comes and goes, substernal. GASTROINTESTINAL: Denies abdominal pain. Denies diarrhea. GENITOURINARY: Denies dysuria. CUTANEOUS: Denies rashes. MUSCULOSKELETAL: Denies muscle weakness (patient is a poor historian, ED physician reported that he is requiring more physical help). NEUROLOGICAL: Denies paresthesias. PSYCHOLOGICAL: Denies anxiety. Denies depression. PHYSICAL EXAMINATION: VITAL SIGNS: Please see below. GENERAL: In no apparent distress, voice is weak, and he is hard of hearing. HEENT: Head normocephalic/atraumatic, sclera clear. RESPIRATORY: Lungs clear to auscultation bilaterally, no rales, wheeze or rhonchi. CARDIOVASCULAR: Regular rate and rhythm. ABDOMEN: Soft, nontender, no guarding or rebound tenderness. Normal bowel sounds. MUSCLE SKELETAL: Mild pitting edema bilaterally. NEUROLOGICAL: CN 312 grossly intact. PSYCHOLOGICAL: Normal mood and affect. LABORATORY DATA: Please see below. Imaging: Section excerpt from radiologist report for the CT angio of abdomen and pelvis Osseous structures: There is metallic internal fixation in the proximal right femur. Multiple lytic lesions are seen consistent with metastases, specifically multiple small lytic lesions are seen throughout the visualized thoracolumbar vertebral bodies, as well as in the upper sacrum. Small lytic lesions are seen in both iliac bones. There is a lytic lesion in the anterior left ischium. There is an expansile lytic lesion in the anterior right 6th rib. There is lytic destruction of the posterior left 8th rib. A fracture of the lateral left 11th rib is likely at the site of a lytic lesion. There is a large fusiform aneurysm of the distal abdominal aorta. Total craniocaudal length is approximately 14.5 cm. Maximum AP diameter is 8.5 cm and transverse 8.0 cm. Moderate to large amount of soft plaque and thrombus is seen in the aneurysm with a central patent lumen. This extends from just below the level of the renal arteries to the aortic bifurcation. There is no evidence of aortic dissection. There is no evidence of aneurysm rupture or leakage. Diffuse lytic metastases throughout the visualized osseous structures as discussed in detail above. No mass or adenopathy is seen in the abdomen or pelvis. ASSESSMENT/PLAN: 1. 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 Patient will need to be escalated to SNF due to increased needs Disposition: Return back to [facility] Vital Signs/I&O Vital Signs Date Time Temp Pulse Resp B/P (MAP) Pulse Ox O2 Delivery O2 Flow Rate FiO2 11/23/20 13:09 97.0 92 22 130/79 (96) 96 Nasal Cannula 2.0 Laboratory Data Labs 24H Laboratory Tests 2 11/23/20 09:45: Immature Granulocyte % (Auto) 3.2H, Neutrophils (%) (Auto) 76.9H, Lymphocytes (%) (Auto) 10.3L, Monocytes (%) (Auto) 7.1, Eosinophils (%) (Auto) 1.5, Basophils (%) (Auto) 1.0, Neutrophils # (Auto) 10.0H, Lymphocytes # (Auto) 1.3L, Monocytes # (Auto) 0.9H, Eosinophils # (Auto) 0.2, Basophils # (Auto) 0.1, Nucleated Red Blood Cells % (auto) 0.0, Total Creatine Kinase 182, Creatine Kinase MB 1.6, Creatine Kinase MB Relative Index 0.88, Troponin I < 0.02, JP-Pxm-O-Type Natriuretic Peptide 846H 11/23/20 09:54: POC Glucose (Misc Panel) 156H, POC Sodium (Misc Panel) 140, POC Potassium (Misc Panel) 4.0, POC Chloride (Misc Panel) 102, POC Total CO2 (Misc Panel) 31.0H, POC Blood Urea Nitrogen (Misc Panel 33H, POC Ionized Calcium (Misc Panel) 7.3H, POC Creatinine (Misc Panel) 1.5H, POC Hematocrit (Misc Panel) 45.0 11/23/20 11:17: Coronavirus (COVID-19)(PCR) NEGATIVE, Influenza Type A (RT-PCR) NEGATIVE, Influenza Type B (RT-PCR) NEGATIVE, Respiratory Syncytial Virus (PCR) NEGATIVE CBC/BMP Laboratory Tests 11/23/20 09:45 Allergies Coded Allergies: No Known Allergies (Unverified , 06/16/19) Home Medications Scheduled Acetaminophen (Acetaminophen 8 Hour) 650 Mg Tablet.er, 650 MG PO BID, (Reported) Aspirin (Aspirin EC) 325 Mg Tablet.dr, 325 MG PO DAILY, (Reported) Furosemide (Lasix) 40 Mg Tablet, 40 MG PO DAILY, (Reported) Metoprolol Tartrate (Metoprolol Tartrate) 25 Mg Tablet, 12.5 MG PO BID, (Reported) Multivitamins (Thera M Plus Tablet) 1 Each Tablet, 1 TAB PO DAILY, (Reported) Omeprazole (Omeprazole) 40 Mg Capsule.dr, 40 MG PO DAILY, (Reported) Potassium Chloride (Potassium Chloride) 10 Meq Tab.er.prt, 10 MEQ PO DAILY, (Reported) Prednisone (Prednisone) 10 Mg Tablet, 10 MG PO DAILY, (Reported) STARTED 11/22/20 FOR 3 DAYS, FINISH DATE 11/24/20 Salmeterol/Fluticasone (Advair 250-50 Diskus) 1 Each Blst.w.dev, 1 PUFF INH BID, (Reported) Simvastatin (Simvastatin) 40 Mg Tablet, 40 MG PO QHS, (Reported) Sucralfate (Sucralfate) 1 Gm Tablet, 1 GM PO ACHS, (Reported) Scheduled PRN Acetaminophen (Tylenol) 325 Mg Tablet, 650 MG PO Q4H PRN for PAIN / FEVER, (Reported) Nystatin (Nystatin Powder) 15 Gm Powder, 1 DOSE TOP BID PRN for RASH, (Reported) APPLY TO KATHARINA SU 24, 2021 15:04
--- NOTE | 2020-11-23 21:03 | ECGEPIP ---
[facility] - ED Test Date: 2020-11-23 Pat Name: JOCELYN LYONS Department: Room: - Gender: Male System Support Analyst: : 1940 Requested By: Gagan Jensen Order Number: [id number] Reading MD: Gagan Siddiqui Measurements Intervals [place] Rate: 89 P: 32 DC: 144 QRS: -4 QRSD: 74 T: 71 QT: 366 QTc: 445 Interpretive Statements Normal sinus rhythm POOR R WAVE PROGRESSION SIMILAR TO 11/19/20 Electronically Signed on 11-23-2020 21:03:34 EDT by Gagan Siddiqui
== END 2020-11-23 14:08 | disposition home or self-care (01) ==
LOC: EDBD 09:13 → M ED 09:13 → CANBEDREQ 12:53 → M ED 14:08
DX: I71.4 Abdominal aortic aneurysm, without rupture (principal); M89.9 Disorder of bone, unspecified; I25.10 Atherosclerotic heart disease of native coronary artery without angina pectoris; I25.2 Old myocardial infarction; I10 Essential (primary) hypertension; E78.5 Hyperlipidemia, unspecified; K21.9 Gastro-esophageal reflux disease without esophagitis; J44.9 Chronic obstructive pulmonary disease, unspecified; Z87.891 Personal history of nicotine dependence; Z79.82 Long term (current) use of aspirin; Z79.899 Other long term (current) drug therapy
CPT/HCPCS: 71045; 74175; 80047; 82550; 82553; 83880; 84484; 85025; 87631; 93005; 99284; Q9967